=== PATIENT | male | born 1990 | race Hispanic/Latino ===

== ENCOUNTER 2016-12-01 19:46 | Observation (INO) ==
[2016-12-01] MEDS ORDERED: TYLENOL ONE ×2 (20:24)
[2016-12-01] MEDS ORDERED: XYLOCAINE-MPF 1% 5 ML ONE ×2 (21:12)
[2016-12-01] MEDS ORDERED: ROCEPHIN ONE ×2 (21:12)
[2016-12-01] MEDS ORDERED: MOTRIN ONE ×2 (22:11)
[2016-12-01] MEDS ORDERED: DECADRON ONE ×2 (22:46)
[2016-12-01] MEDS ORDERED: NS 1,000 ML ONE ×2 (22:54)
[2016-12-02] MEDS ORDERED: TYLENOL PO PRN (00:20)
[2016-12-02] MEDS ORDERED: NS 1,000 ML IV ONE (00:20)
[2016-12-02] MEDS ORDERED: LEVAQUIN 750 MG/D5W 750 MG/150 ML IVPB IV SCH (00:30)
[2016-12-02] MEDS: DUONEB (A & A) INH SCH ×2 (02:38→08:11)
[2016-12-02] MEDS: TORADOL IV PRN ×2 (03:20→14:03)
[2016-12-02 07:21] LABS: MANUAL DIFF NEEDED? NO
[2016-12-02] MEDS ORDERED: FLUZONE QUAD 2016-2017 SYRINGE IM ONE (07:28)
[2016-12-02 07:35] LABS: CHLORIDE 97 mmol/L (98-107); POTASSIUM 3.5 mmol/L (3.5-5.1); SODIUM 134 mmol/L (136-145)
[2016-12-02 07:36] LABS: AGAP 15; ALBUMIN 4.1 g/dL (3.5-5.0); ALKALINE PHOSPHATASE 80 U/L (32-122); BUN 14 mg/dL (8-22); CALCIUM 8.8 mg/dL (8.8-10.2); COSMO 269; TCO2 22 mmol/L (25-35); TOTAL PROTEIN 6.4 g/dL (6.3-8.3)
[2016-12-02 07:37] LABS: GOT 68 U/L (10-34); GPT 68 U/L (10-44); HEMATOCRIT 45.1 % (42.0-52.0); HEMOGLOBIN 15.8 g/dL (14.0-18.0); MCV 86.6 FL (81-99); RBC 5.21 XMIL (4.7-6.1)
[2016-12-02 07:38] LABS: BASO% 0.2 % (0.0-0.8); EOS# 0.07 X1000 (0.0-0.7); EOS% 0.8 % (0.0-10.0); IMM GRAN# 0.09 X1000 (0.0-0.04); LYMPH# 0.87 X1000 (1.2-3.4); LYMPH% 9.5 % (20.5-51.1); MCH 30.3 PG (27-31); MONO# 1.06 X1000 (0.11-0.59); MONO% 11.6 % (1.7-9.3); MPV 11.2 FL (7.4-10.4); NEUT% 76.9 % (42.2-75.2); PLT 210 X1000 (130-400)
--- NOTE | 2016-12-02 09:12 | Diag Imaging Result Document ---
PROCEDURE NAME: CHEST-2 VIEWS - 12/02/2016 CHEST 2 VIEWS: No comparison exam. FINDINGS: Heart size is normal. There is mild infiltrate or atelectasis at the right middle lobe. The remainder of the lungs appear clear. There is no pleural effusion or pneumothorax identified. IMPRESSION: Mild infiltrate or atelectasis at right middle lobe. The possibility of mild bronchopneumonia cannot be excluded.
[2016-12-02] MEDS ORDERED: VENTOLIN HFA INH SCH (10:00)
[2016-12-02 12:11] VITALS: BP 126/58
--- NOTE | 2016-12-02 14:25 | HISTORY AND PHYSICAL ---
CHIEF COMPLAINT: Cough. Generalized body aches and fever. HISTORY OF PRESENT ILLNESS: This is a 25-year-old male with a history of asthma who presented to the emergency room complaining of 2-3 days of increasing cough, fever, generalized body aches despite taking Tylenol or using his home inhaler. He was found to have atelectasis or infiltrate in the right middle lobe. Possibility of bronchopneumonia cannot be excluded per chest x-ray. He was given Levaquin and hydration and admitted for further evaluation and treatment. PAST MEDICAL HISTORY: Asthma. PAST SURGICAL HISTORY: Denies. SOCIAL HISTORY: He denies alcohol, tobacco, or illicit drug use. He is . He has a child. He works for [employer]. ALLERGIES: No known drug allergies. HOME MEDICATIONS: Albuterol inhaler. REVIEW OF SYSTEMS: A 14 point review of systems is discussed with patient with pertinent positives stated in HPI. He denies chest pain, chest pressure, palpitations, dizziness, syncope, productive cough, PND, orthopnea, any nausea vomiting, diarrhea, constipation, black or bloody vomitus, black or bloody stools, hematuria, dysuria, frequency, urgency. PHYSICAL EXAMINATION: GENERAL: This is a 25-year-old, cough male who is sitting up in the bed, in no distress. VITAL SIGNS: Blood pressure is 115/57 with a heart rate of 68, respirations are 18, temperature is 97.9 degrees oral with room air saturations 95-96%. HEENT: Head is normocephalic, atraumatic. Pupils equal, round, react to light. EOMs are intact. Sclerae anicteric. Mucous membranes are moist. NECK: Supple. Trachea midline. CARDIOVASCULAR: Regular rate and rhythm. S1, S2 appreciated. PULMONARY: Breath sounds are diminished on the right with some scattered wheezing in the upper lobes. No increased work of breathing noted. GASTROINTESTINAL: Abdomen is soft, nontender, nondistended with bowel sounds in all 4 quadrants. BACK: No CVAT. No spine tenderness. EXTREMITIES: No clubbing, cyanosis, or edema. Calves are nontender. Pulses are palpable x4. NEUROLOGIC: He is alert orient x3. Cranial nerves 2-12 grossly intact. DIAGNOSTICS: WBC is 9.1 with hemoglobin 15.8, hematocrit 45.1, and platelets of 210,000. Sodium is 134, potassium 3.5, BUN 14, creatinine 0.9, with a glucose of 102. Flu A and B and strep are negative. Chest x-ray revealed right middle lobe infiltrate with bronchopneumonia not being excluded per Radiology read. ASSESSMENT AND PLAN: 1. Right middle lobe pneumonia. He was given Levaquin in the emergency room. He has a white count that is within normal limits. He is afebrile. He states he is feeling much better after hydration. 2. Asthma, history of. He states he has had asthma since he was a child and he has flare ups with weather change going from hot to cold weather primarily. He denies any recent asthma flare-ups. 3. Disposition. Further treatments pending hospital course. Dictated by TERRY Hopkins for Benny Glover MD cc: TERRY oHpkins MD
--- NOTE | 2016-12-02 16:38 | DISCHARGE SUMMARY ---
ADMISSION DATE: 12/02/2016 DISCHARGE DATE: 12/02/2016 DIAGNOSES: 1. Right-sided pneumonia. 2. History of asthma. DIAGNOSTICS: Chest x-ray revealed right middle lobe infiltrates with bronchopneumonia not being excluded. HOSPITAL COURSE: Mr. Padilla presented to the hospital with 2-3 days of increasing nonproductive cough, fever. He was found to have right middle lobe pneumonia. He was given IV hydration, Levaquin and we did continue his albuterol inhaler. He has improved, subjectively he has been afebrile. PHYSICAL: Cardiovascular: Regular rate, rhythm, S1, S2 appreciated. Pulmonary: Breath sounds are diminished in the right with some scattered wheezing. No increased work of breathing noted. Gastrointestinal: Abdomen is soft, nontender, nondistended with bowel sounds in all 4 quadrants. Extremities: No clubbing, cyanosis, or edema. Calves nontender. Pulses are palpable x4. Discharge Vital signs: Blood pressure is 115/57 with a heart rate of 68, respirations are 18, temperature is 97.9 degrees oral with a room air saturation of 98%. DISCHARGE ACTIVITY: As tolerated. DISCHARGE DIET: Regular. DISCHARGE MEDICATIONS: 1. Bactrim DS 1 p.o. b.i.d. for 14 days. 2. Prednisone taper 5 mg pills he will take 20 mg for 3 days, 15 mg for 3 days, 10 mg for 3 days, 5 for 3 days then stop. 3. Albuterol inhaler 4 times a day as needed for wheezing. FOLLOWUP: He will follow up with his primary care physician in [place] next week, sooner if needed. The patient is from [place]. He is here for the week working to get extra money as he has a sick child and needs to pay medical bills. He has no insurance. We did discuss his ability to pay for prescription medication on discharge. Therefore we will give him a prednisone taper off the 4 dollar list at [facility] as well as Bactrim DS off the 4 dollar list at [facility]. He does state that he can fill these 2 prescriptions. He does have the financial resources. The patient does primary speaks Sami. He speaks broken Greek. We were unable to establish connection with the cementer machine joiner via telephone therefore we used [facility] and were able to do his history and physical discharge and answered all his questions. He is being discharged home in stable condition with friends. TIME SPENT: This is a greater than 30 minute discharge. Dictated by TERRY Hopkins for Benny Glover MD cc: TERRY Hopkins MD
== END 2016-12-02 14:50 | disposition home or self-care (01) ==
LOC: P.ED 19:46 → INTOOBSV 12-02 01:28 → P.MEDSURG 12-02 01:28
PROVIDERS: ATTEND Family Medicine